=== PATIENT | male | born 1975 | race African-American/Black ===

== ENCOUNTER 2019-03-26 04:09 | Emergency (ER) | payer OTHER ==
[~2019-03-26] VITALS: Ht 185.4 cm; Wt 97.5 kg
[2019-03-26] MEDS ORDERED: IBUPROFEN 800 MG TABLET ONE (04:57)
--- NOTE | 2019-03-26 04:59 | NUR ---
PT AMBULATORY W/ STABLE GAIT C/O LBP, NONRADIATING , +SPASM DENIES CHANGES IN B/B FUNCTION DENIES NVD DENIES RECENT TRAUMA NOR SURGERY TO THE SITE PT ABLE TO TOLERATE PO PAIN MEDS
[2019-03-26] MEDS ORDERED: IBUPROFEN 800 MG TABLET PO ONE (05:00)
--- NOTE | 2019-03-26 05:11 | NUR ---
Patient discharged to home in stable conditon. Written and verbal after care instructions given. Patient verbalizes understanding of instructions. AMBULATORY W/ STABLE GAIT ALL BELONGINGS W/ PT
[2019-03-26 05:14] VITALS: BP 133/84
== END 2019-03-26 05:15 | disposition home or self-care (01) ==
LOC: ER 04:16
DX: M54.5 Low back pain (principal)
CPT/HCPCS: A4663